=== PATIENT | female | born 1975 | race African-American/Black ===

== ENCOUNTER 2017-07-11 21:36 | Emergency (ER) | payer OTHER ==
[~2017-07-11] VITALS: Ht 160 cm; Wt 58.1 kg
[2017-07-11 21:40] VITALS: BP 125/78
--- NOTE | 2017-07-11 21:52 | PHYS DOC ---
Adult General Chief Complaint Chief Complaint: LOWER EXT PAIN HPI HPI Patient is a 41 year old female with a history of diabetes and HIV (states undetectable) presents to the ED complaining of left ankle injury x 1 day. Patient presents with walking boot to left leg and crutches. States on May 21 she fell down some stairs and broke her left ankle. Surgery to repair it. The surgeon put her in a walking boot after the surgery instead of a cast due to her diabetes. States she moved last night in bed and felt a pain in her left ankle. Describes the pain as sharp. Rates the pain as 7/10. Denies fever, n/v, dizziness, chest pain, weakness, swelling or skin changes, shortness of breath or calf pain. Review of Systems Review of Systems Constitutional: Denies fever or chills [] Eyes: Denies change in visual acuity, redness, or eye pain [] HENT: Denies nasal congestion or sore throat [] Respiratory: Denies cough or shortness of breath [] Cardiovascular: No additional information not addressed in HPI [] GI: Denies abdominal pain, nausea, vomiting, bloody stools or diarrhea [] : Denies dysuria or hematuria [] Musculoskeletal: Denies back pain. Complains of left ankle pain. [] Integument: Denies rash or skin lesions [] Neurologic: Denies headache, focal weakness or sensory changes [] Endocrine: Denies polyuria or polydipsia [] Allergies Allergies Allergies Coded Allergies Type Severity Reaction Last Updated Verified Penicillins Allergy Unknown 07/11/17 Yes codeine Allergy Unknown 07/11/17 Yes ketorolac Allergy Unknown 07/11/17 Yes metoclopramide Allergy Unknown 07/11/17 Yes ondansetron Allergy Unknown 07/11/17 Yes prochlorperazine Allergy Unknown 07/11/17 Yes vancomycin Allergy Unknown 07/11/17 Yes Physical Exam Physical Exam Constitutional: Well developed, well nourished, no acute distress, non-toxic appearance. [] HENT: Normocephalic, atraumatic, bilateral external ears normal, oropharynx moist, no oral exudates, nose normal. [] Eyes: PERRLA, EOMI, conjunctiva normal, no discharge. [] Neck: Normal range of motion, no tenderness, supple, no stridor. [] Cardiovascular:Heart rate regular rhythm, no murmur [] Lungs & Thorax: Bilateral breath sounds clear to auscultation [] Abdomen: Bowel sounds normal, soft, no tenderness, no masses, no pulsatile masses. [] Skin: Warm, dry, no erythema, no rash. [] Back: No tenderness, no CVA tenderness. [] Extremities: MILD LEFT LATERAL ANKLE TENDERNESS. NO SWELLING OR OVERLYING SKIN CHANGES. NEGATIVE HOMANS TEST., no cyanosis, no clubbing, ROM intact, no edema. [] Neurologic: Alert and oriented X 3, normal motor function, normal sensory function, no focal deficits noted. [] Psychologic: Affect normal, judgement normal, mood normal. [] Current Patient Data Vital Signs Vital Signs Date Time Temp Pulse Resp B/P (MAP) Pulse Ox O2 Delivery O2 Flow Rate FiO2 07/11/17 21:40 98.1 105 18 98 Room Air 98.1 EKG EKG [] Radiology/Procedures Radiology/Procedures PROCEDURE: ANKLE LEFT 3V Examination: 3 views of the left ankle History: History of injury Comparison: None available. Findings: The ankle mortise appears intact. There is no obvious acute fracture or dislocation identified. Minimal cortical irregularity identified in the medial cortex of the distal fibula and lateral cortex of the distal tibia probably old injury. Correlate clinically. Impression: No acute osseous findings. Minimal cortical irregularity identified in the medial cortex of the distal fibula and lateral cortex of the distal tibia probably old injury. Correlate clinically.[] Course & Med Decision Making Course & Med Decision Making Pertinent Labs and Imaging studies reviewed. (See chart for details) []X-ray negative for acute injury. Patient's pain improved. Patient placed back in orthopedic walking boot from previous injury. Neurovascular intact post placement. Patient has crutches. Discussed being nonweightbearing until seeing her orthopedic surgeon that she is following up with later this week. Discussed reasons to return to the ED. Patient understands and agrees with plan.. Dragon Disclaimer Dragon Disclaimer This electronic medical record was generated, in whole or in part, using a voice recognition dictation system. Departure Departure Impression: Primary Impression: Ankle pain Additional Impression: Ankle sprain Disposition: HOME, SELF-CARE Condition: IMPROVED Referrals: SOMMER GLASS MD Patient Instructions: Ankle Pain, Ankle Sprain Problem Qualifiers JACK MCKEON Jul 11, 2017 21:52
--- NOTE | 2017-07-12 08:41 | RAD ---
Examination: 3 views of the left ankle History: History of injury Comparison: None available. Findings: The ankle mortise appears intact. There is no obvious acute fracture or dislocation identified. Minimal cortical irregularity identified in the medial cortex of the distal fibula and lateral cortex of the distal tibia probably old injury. Correlate clinically. Impression: No acute osseous findings. Minimal cortical irregularity identified in the medial cortex of the distal fibula and lateral cortex of the distal tibia probably old injury. Correlate clinically.
== END 2017-07-11 22:38 | disposition home or self-care (01) ==
LOC: ER 21:36
DX: S93.402A Sprain of unspecified ligament of left ankle, initial encounter (principal); E11.9 Type 2 diabetes mellitus without complications; Z88.0 Allergy status to penicillin; Z88.5 Allergy status to narcotic agent; Z88.1 Allergy status to other antibiotic agents; Z88.8 Allergy status to other drugs, medicaments and biological substances; X58.XXXA Exposure to other specified factors, initial encounter; Y93.89 Activity, other specified; Y92.89 Other specified places as the place of occurrence of the external cause; Y99.8 Other external cause status
CPT/HCPCS: 73610; 99284

== ENCOUNTER 2017-09-16 19:46 | Emergency (ER) | payer OTHER ==
[2017-09-16 20:39] LABS: ADD MAN DIFF? NO
[2017-09-16 20:41] LABS: BASO # 0.1 x10^3/uL (0.0-0.2); BASO % 1 % (0-3); EOS # 0.4 x10^3/uL (0.0-0.7); EOS % 6 % (0-3); HEMATOCRIT 26.4 % (36.0-47.0); HEMOGLOBIN 8.3 g/dL (12.0-15.5); LYMPH # 2.3 x10^3/uL (1.0-4.8); LYMPH % 40 % (24-48); MEAN CORPUSCULAR HEMOGLOBIN 25 pg (25-35); MEAN CORPUSCULAR HGB CONC 32 g/dL (31-37); MEAN CORPUSCULAR VOLUME 78 fL (79-100); MONO # 0.6 x10^3/uL (0.0-1.1); MONO % 11 % (0-9); NEUT # 2.4 x10^3uL (1.8-7.7); NEUT % 42 % (31-73); PLATELET COUNT 339 x10^3/uL (140-400); RED BLOOD COUNT 3.37 x10^6/uL (3.50-5.40); RED CELL DISTRIBUTION WIDTH 19.6 % (11.5-14.5); WHITE BLOOD COUNT 5.7 x10^3/uL (4.0-11.0)
[2017-09-16 20:42] LABS: BILIRUBIN,URINE NEGATIVE (NEG); CLARITY,URINE CLOUDY; GLUCOSE,URINE NEGATIVE (NEG); NITRITE,URINE NEGATIVE (NEG); PROTEIN,URINE NEGATIVE (NEG-TRACE)
[2017-09-16 20:48] LABS: COLOR,URINE STRAW
[2017-09-16 20:51] LABS: BACTERIA,URINE MANY /HPF (0-FEW); SQUAMOUS EPITHELIAL CELL,UR MANY /LPF; WBC,URINE 20-40 /HPF (0-4)
[2017-09-16 20:55] LABS: ANION GAP 8 (6-14); BLOOD UREA NITROGEN 10 mg/dL (7-20); BUN/CREATININE RATIO 13 (6-20); CALCIUM 8.9 mg/dL (8.5-10.1); CARBON DIOXIDE 28 mmol/L (21-32); CHLORIDE 105 mmol/L (98-107); CREATININE 0.8 mg/dL (0.6-1.0); GFR 96.1; GLUCOSE 102 mg/dL (70-99); POTASSIUM 3.8 mmol/L (3.5-5.1); SODIUM 141 mmol/L (136-145)
[2017-09-16] MEDS: MORPHINE SULFATE 4 MG/ML DISP.SYRIN. IV ×2 (21:00→22:27)
[2017-09-16 21:05] LABS: ALBUMIN 3.3 g/dL (3.4-5.0); ALBUMIN/GLOBULIN RATIO 0.7 (1.0-1.7); ALK PHOS 92 U/L (46-116); ALT (SGPT) 24 U/L (14-59); AST (SGOT) 27 U/L (15-37); TOTAL BILIRUBIN 0.1 mg/dL (0.2-1.0); TOTAL PROTEIN 7.8 g/dL (6.4-8.2)
[2017-09-16 21:05] LABS: TROPONINI < 0.017 ng/mL (0.000-0.055)
[2017-09-16 21:06] LABS: NT-PRO BNP 60 pg/mL (0-124)
[2017-09-16] MEDS: CIPROFLOXACIN 400MG PREMIX 200 ML IV (22:43)
[2017-09-17] MEDS: HEPARIN PF 500 UNIT/5 ML DISP.SYRIN. IV (00:45)
[2017-09-17] MEDS: MORPHINE SULFATE 4 MG/ML DISP.SYRIN. IV (00:45)
[2017-09-17] MEDS: MAGNESIUM CITRATE 296 ML SOLUTION. PO (00:45)
[2017-09-17] MEDS ORDERED: CIPROFLOXACIN 400MG PREMIX 200 ML IV (09:00)
== END 2017-09-17 01:10 | disposition home or self-care (01) ==
LOC: ER 09-17 01:10
DX: N39.0 Urinary tract infection, site not specified (principal); J02.9 Acute pharyngitis, unspecified; D64.9 Anemia, unspecified; K59.00 Constipation, unspecified; R00.0 Tachycardia, unspecified; R06.02 Shortness of breath; M79.89 Other specified soft tissue disorders; I48.91 Unspecified atrial fibrillation; E11.9 Type 2 diabetes mellitus without complications; I10 Essential (primary) hypertension; Z21 Asymptomatic human immunodeficiency virus [HIV] infection status; Z88.0 Allergy status to penicillin; Z90.710 Acquired absence of both cervix and uterus; Z88.5 Allergy status to narcotic agent; Z88.8 Allergy status to other drugs, medicaments and biological substances; Z88.1 Allergy status to other antibiotic agents
CPT/HCPCS: 36415; 71010; 74176; 80053; 81001; 83880; 84484; 85025; 87086; 87186; 93005; 96365; 96375; 96376; 99285-25; J0744; J2270

== ENCOUNTER 2017-12-20 17:58 | Emergency (ER) | payer OTHER | END 2017-12-20 20:16 | disposition home or self-care (01) | LOC: ER 17:58 | DX: S60.011A Contusion of right thumb without damage to nail, initial encounter (principal); E10.9 Type 1 diabetes mellitus without complications; I48.91 Unspecified atrial fibrillation; I10 Essential (primary) hypertension; Z88.0 Allergy status to penicillin; Z88.5 Allergy status to narcotic agent; Z88.6 Allergy status to analgesic agent; Z88.1 Allergy status to other antibiotic agents; Z88.8 Allergy status to other drugs, medicaments and biological substances; W11.XXXA Fall on and from ladder, initial encounter; Y93.89 Activity, other specified; Y99.8 Other external cause status; Y92.89 Other specified places as the place of occurrence of the external cause | CPT/HCPCS: 73130; 99284 ==